=== PATIENT | male | born 1985 | race Caucasian/White ===

== ENCOUNTER → 2020-04-04 | Outpatient (CLI) | payer MEDICAID | END | disposition home or self-care (01) | LOC: LABWHC1 09:36 | PROVIDERS: ATTEND Pediatrics Pediatric Infectious Diseases | DX: Z11.59 Encounter for screening for other viral diseases (principal) | CPT/HCPCS: U0003; C9803 ==

== ENCOUNTER → 2023-07-13 | Outpatient (CLI) | payer MEDICAID ==
--- NOTE | 2023-07-13 14:27 | XR ---
EXAMINATION TYPE: XR ankle complete RT DATE OF EXAM: 07/13/2023 1:34 PM CLINICAL INDICATION:Male, 38 years old with history of [id number] RT ANKLE PAIN; [facility] COMPARISON: None TECHNIQUE: XR ankle complete RT; ankle is imaged in frontal, lateral and oblique projections. FINDINGS: There is no evidence of acute osseous pathology. The joint spaces are well-preserved without evidenc e of subluxation or dislocation. Kager's fat pad is intact. No radiopaque foreign bodies are identifi ed. IMPRESSION: 1. No evidence of acute fracture. 2. Subcutaneous swelling around the ankle likely secondary to underlying soft tissue injury.
== END | disposition home or self-care (01) ==
LOC: RADXRYALE 13:24
PROVIDERS: ATTEND Internal Medicine
DX: M25.571 Pain in right ankle and joints of right foot (principal); M79.89 Other specified soft tissue disorders

== ENCOUNTER → 2023-08-19 | Outpatient (CLI) | payer MEDICAID ==
--- NOTE | 2023-08-21 10:41 | MR ---
EXAMINATION TYPE: MR ankle RT wo con DATE OF EXAM: 08/19/2023 COMPARISON: Right ankle radiograph 07/13/2023 HISTORY: Right ankle pain, swelling, clicking, and limited movement. Multiplanar, multisequence images of the right ankle were acquired without contrast. FINDINGS: LIGAMENTS: High-grade partial-thickness tear of the anterior talofibular ligament. The calcaneofibular ligament and posterior talofibular ligament are intact Deltoid ligamentous complex is normal. Tibiofibular syndesmosis is normal. Spring ligament is normal. Lisfranc ligament normal. PERONEAL TENDONS: Normal. FLEXOR TENDONS: Normal. EXTENSOR TENDONS: Normal. ACHILLES TENDON: Normal. BONES/CARTILAGE/JOINT: Bone marrow signal is normal. Articular cartilage is normal. No joint effusion. SOFT TISSUES: Small amount of edema within the distal tibiofibular syndesmosis which may relate to a low-grade synd esmotic injury. No bursal distention. Kager's fat pad is normal. Sinus tarsi is normal. Plantar fascia is normal. Neurovascular structures are normal. IMPRESSION: 1. Grade 2 ATFL sprain. 2. Possible low-grade syndesmotic injury appear
== END | disposition home or self-care (01) ==
LOC: RADMRIMAIN 16:55
PROVIDERS: ATTEND Orthopaedic Surgery
DX: M24.871 Other specific joint derangements of right ankle, not elsewhere classified (principal); S82.54XA Nondisplaced fracture of medial malleolus of right tibia, initial encounter for closed fracture; S93.431A Sprain of tibiofibular ligament of right ankle, initial encounter; X58.XXXA Exposure to other specified factors, initial encounter